=== PATIENT | male | born 2000 | race Hispanic/Latino ===

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

== ENCOUNTER 2018-05-24 10:47 | Emergency (ER) | payer BC ==
[2018-05-24 11:35] LABS: Absolute Lymphocytes (CBC) 1.6 K/uL (0.7-4.9); Absolute Monocytes 0.7 K/uL (0.1-1.3); Absolute Neutrophil 4.6 K/uL (1.8-8.0); Basophils % 0.9 % (0-1.3); Eosinophils % 1.3 % (0-4.4); Hematocrit 48.9 % (39.6-49.0); Lymphocytes % 22.9 % (15.3-44.8); MPV 12.5 fL (7.6-11.3); Monocytes % 9.5 % (3.3-12.3)
[2018-05-24 11:59] LABS: BUN Blood Urea Nitrogen 7 mg/dL (7-18); Bicarbonate 30 mmol/L (21-32); Glucose Level 73 mg/dL (74-106); Potassium 3.5 mmol/L (3.5-5.1); Sodium Level 140 mmol/L (136-145); Troponin (Emerg Dept Use Only) < 0.02 ng/mL (0.0-0.045)
[2018-05-24 12:21] LABS: Platelet Estimate ADEQ; Urine White Blood Cell Casts OK
[2018-05-24 12:22] LABS: Blood Morphology Comment NOT SEEN (NOT SEEN)
--- NOTE | 2018-05-24 12:50 | RAD REPORT ---
EXAM DESCRIPTION: RAD - Chest Pa And Lat (2 Views) - 05/24/2018 12:44 pm CLINICAL HISTORY: Chest pain COMPARISON: October 2014 TECHNIQUE: PA and lateral views of the chest were obtained. FINDINGS: The lungs are clear. Lung markings are similar to comparison. Heart size is normal and ce ntral vasculature is within normal limits. No pleural effusion or pneumothorax seen. No acute bony finding noted. No aortic abnormality. IMPRESSION: No acute cardiopulmonary process. No significant interval change.
--- NOTE | 2018-05-24 13:20 | ER ---
Nurse's Notes [facility] Name: Jessica Dalton Age: 18 yrs Sex: Male : 2000 Arrival Date: 05/24/2018 Time: 10:51 Bed 18 Private MD: Willie Edgar A Diagnosis: Chest pain, unspecified Presentation: 05/24 10:57 Presenting complaint: Patient states: "I've been having chest pain since I was 14 years aa5 old but it just got worse about a month ago". pt also reports SOB. Reports generalized weakness x 1 week ago. Transition of care: patient was not received from another setting of care. Onset of symptoms was 2014. Risk Assessment: Do you want to hurt yourself or someone else? Patient reports no desire to harm self or others. Initial Sepsis Screen: Does the patient meet any 2 criteria? No. Patient's initial sepsis screen is negative. Does the patient have a suspected source of infection? No. Patient's initial sepsis screen is negative. Care prior to arrival: None. 10:57 Method Of Arrival: Ambulatory aa5 10:57 Acuity: MARINA 3 aa5 Triage Assessment: 11:02 General: Appears in no apparent distress. uncomfortable, Behavior is calm, cooperative, hj appropriate for age. Pain: Complains of pain in chest. Cardiovascular: Reports chest pain. Historical: - Allergies: 10:58 No Known Allergies; aa5 - Home Meds: 10:58 None [Active]; aa5 - PMHx: 10:58 None; aa5 - Immunization history:: Flu vaccine is not up to date. - Social history:: Smoking status: Patient uses tobacco products, smokes one-half pack cigarettes per day. - Ebola Screening: : No symptoms or risks identified at this time. Screenin:02 Abuse screen: Denies threats or abuse. Denies injuries from another. Nutritional hj screening: No deficits noted. Tuberculosis screening: No symptoms or risk factors identified. Fall Risk None identified. Assessment: 11:03 Pain: Pain does not radiate. Pain began for amonth. hj 11:10 Reassessment: provider in room;. General: Appears in no apparent distress. hj uncomfortable, Behavior is calm, cooperative, appropriate for age. Neuro: Level of Consciousness is awake, alert, obeys commands, Oriented to person, place, time, situation, Appropriate for age. Cardiovascular: Reports chest pain. Respiratory: No deficits noted. GI: No signs and/or symptoms were reported involving the gastrointestinal system. : No signs and/or symptoms were reported regarding the genitourinary system. EENT: No signs and/or symptoms were reported regarding the EENT system. Derm: No signs and/or symptoms reported regarding the dermatologic system. Musculoskeletal: No signs and/or symptoms reported regarding the musculoskeletal system. 12:09 Reassessment: Patient and/or family updated on plan of care and expected duration. Pain hj level reassessed. Patient is alert, oriented x 3, equal unlabored respirations, skin warm/dry/pink. BP came down to 176/62;. Vital Signs: 10:58 BP 126 / 78; Pulse 88; Resp 16 S; Temp 98.9(O); Pulse Ox 99% on R/A; Weight 99.79 kg aa5 (R); Height 6 ft. 0 in. (182.88 cm) (R); Pain 5/10; 12:09 BP 125 / 75; Pulse 84; Resp 18; Pulse Ox 100% on R/A; hj 10:58 Body Mass Index 29.84 (99.79 kg, 182.88 cm) aa5 ED Course: 10:51 Patient arrived in ED. mr 10:51 Willie Edgar MD is Private Physician. mr 10:56 Arm band placed on. aa5 10:58 Triage completed. aa5 11:00 Fidel Grullon MD is Attending Physician. gs 11:02 Bryce Cabrera, JABARI is Primary Nurse. hj 11:03 Patient has correct armband on for positive identification. Placed in gown. Bed in low hj position. Call light in reach. Side rails up X 1. Adult w/ patient. pharmacy clinical specialist on. Pulse ox on. NIBP on. 11:03 Patient maintains SpO2 saturation greater than 95% on room air. hj 11:19 EKG done, by cleaning technician. reviewed by Fidel Grullon MD. at1 11:22 Initial lab(s) drawn, by ED staff, sent to lab. Inserted saline lock: 20 gauge in right hj forearm, using aseptic technique. Blood collected. 12:46 XRAY Chest Pa And Lat (2 Views) In Process Unspecified. EDMS Administered Medications: 13:17 Drug: TORadol 30 mg Route: IVP; Site: right forearm; 13:27 Follow up: Response: No adverse reaction; Pain is decreased Outcome: 13:19 Discharge ordered by . hernán 13:37 Patient left the ED. Signatures: Dispatcher [employer] CHIQUI HamAlexia mr RoldanRadha, RN RN aa5 Patrizia Alexander, software quality tester EKG Tat1 Bryce Cabrera RN RN hj Starr, Gregory, MD MD
--- NOTE | 2018-05-24 13:20 | EDPHYS ---
Physician Documentation [facility] Name: Jessica Dalton Age: 18 yrs Sex: Male : 2000 Arrival Date: 05/24/2018 Time: 10:51 Bed 18 Private MD: Willie Edgar, A ED Physician YadiMarlonFidel HPI: 05/24 13:11 This 18 yrs old Male presents to ER via Ambulatory with complaints of Chest gs Pain, Weakness. 13:11 The patient or guardian reports chest pain that is located primarily in the anterior gs chest wall. The pain does not radiate. Associated signs and symptoms: Pertinent negatives: abdominal pain, diaphoresis, lightheadedness, vomiting. The chest pain is described as dull. Duration: The patient or guardian reports multiple episodes, that are intermittent, that wax and wane, with no pattern, the episodes last approximately 5 minute(s). Modifying factors: the symptoms are aggravated by twisting torso. Severity of pain: At its worst the pain was moderate in the emergency department the pain has improved mildly. The patient has experienced similar episodes in the past, a few times. Historical: - Allergies: 10:58 No Known Allergies; aa5 - Home Meds: 10:58 None [Active]; aa5 - PMHx: 10:58 None; aa5 - Immunization history:: Flu vaccine is not up to date. - Social history:: Smoking status: Patient uses tobacco products, smokes one-half pack cigarettes per day. - Ebola Screening: : No symptoms or risks identified at this time. ROS: 13:11 All other systems are negative. gs Exam: 13:11 Head/Face: Normocephalic, atraumatic. Eyes: Pupils equal round and reactive to light, gs extra-ocular motions intact. Lids and lashes normal. Conjunctiva and sclera are non-icteric and not injected. Cornea within normal limits. Periorbital areas with no swelling, redness, or edema. ENT: Nares patent. No nasal discharge, no septal abnormalities noted. Tympanic membranes are normal and external auditory canals are clear. Oropharynx with no redness, swelling, or masses, exudates, or evidence of obstruction, uvula midline. Mucous membranes moist. Neck: Trachea midline, no thyromegaly or masses palpated, and no cervical lymphadenopathy. Supple, full range of motion without nuchal rigidity, or vertebral point tenderness. No Meningismus. Chest/axilla: Normal chest wall appearance and motion. Nontender with no deformity. No lesions are appreciated. Cardiovascular: Regular rate and rhythm with a normal S1 and S2. No gallops, murmurs, or rubs. Normal PMI, no JVD. No pulse deficits. Respiratory: Lungs have equal breath sounds bilaterally, clear to auscultation and percussion. No rales, rhonchi or wheezes noted. No increased work of breathing, no retractions or nasal flaring. Abdomen/GI: Soft, non-tender, with normal bowel sounds. No distension or tympany. No guarding or rebound. No evidence of tenderness throughout. Back: No spinal tenderness. No costovertebral tenderness. Full range of motion. Skin: Warm, dry with normal turgor. Normal color with no rashes, no lesions, and no evidence of cellulitis. MS/ Extremity: Pulses equal, no cyanosis. Neurovascular intact. Full, normal range of motion. Neuro: Awake and alert, GCS 15, oriented to person, place, time, and situation. Cranial nerves II-XII grossly intact. Motor strength 5/5 in all extremities. Sensory grossly intact. Cerebellar exam normal. Normal gait. 13:11 Constitutional: The patient appears alert, awake. 13:11 ECG was reviewed by the Attending Physician. Vital Signs: 10:58 BP 126 / 78; Pulse 88; Resp 16 S; Temp 98.9(O); Pulse Ox 99% on R/A; Weight 99.79 kg aa5 (R); Height 6 ft. 0 in. (182.88 cm) (R); Pain 5/10; 12:09 BP 125 / 75; Pulse 84; Resp 18; Pulse Ox 100% on R/A; hj 10:58 Body Mass Index 29.84 (99.79 kg, 182.88 cm) aa5 MDM: 11:13 Patient medically screened. 13:11 Differential diagnosis: coronary artery disease chest wall pain, pleurisy, gs pneumothorax. Data reviewed: vital signs, nurses notes. Response to treatment: the patient's symptoms have resolved after treatment, and as a result, I will discharge patient. 05/24 11:15 Order name: Basic Metabolic Panel; Complete Time: 12:35 05/24 11:15 Order name: CBC with Diff; Complete Time: 12:35 05/24 11:15 Order name: Troponin (emerg Dept Use Only); Complete Time: 12:35 05/24 11:15 Order name: XRAY Chest Pa And Lat (2 Views); Complete Time: 13:10 05/24 12:04 Order name: CBC Smear Scan; Complete Time: 12:35 [facility] 05/24 11:06 Order name: EKG; Complete Time: 11:07 05/24 11:15 Order name: Cardiac monitoring; Complete Time: 11:17 05/24 11:15 Order name: IV Saline Lock; Complete Time: 11: 05/24 11:15 Order name: Labs collected and sent; Complete Time: : 05/24 11:15 Order name: O2 Per Protocol; Complete Time: 11: 05/24 11:15 Order name: O2 Sat Monitoring; Complete Time: 11:17 EC:11 Rate is 73 beats/min. Rhythm is regular. [place] interval is normal. QRS interval is normal. gs T waves are Normal. No ST changes noted. Clinical impression: Normal ECG. Interpreted by me. Administered Medications: 13:17 Drug: TORadol 30 mg Route: IVP; Site: right forearm; 13:27 Follow up: Response: No adverse reaction; Pain is decreased Disposition: 05/24/18 13:19 Discharged to Home. Impression: Chest pain, unspecified. - Condition is Stable. - Discharge Instructions: Nonspecific Chest Pain. - Prescriptions for Naprosyn 500 mg Oral Tablet - take 1 tablet by ORAL route 2 times per day for 7 days take with food; 14 tablet. Pepcid 20 mg Oral Tablet - take 1 tablet by ORAL route every 12 hours for 10 days; 20 tablet. - Medication Reconciliation Form, Thank You Letter, Antibiotic Education, Prescription Opioid Use form. - Follow up: Private Physician; When: 2 - 3 days; Reason: Re-evaluation by your physician. Signatures: Dispatcher [employer] Radha Garcia, RN RN aa5 Bryce Cabrera RN RN Fidel Polanco MD MD gs Corrections: (The following items were deleted from the chart) 13:37 13:19 05/24/2018 13:19 Discharged to Home. Impression: Chest pain, unspecified. hj Condition is Stable. Forms are Medication Reconciliation Form, Thank You Letter, Antibiotic Education, Prescription Opioid Use. Follow up: Private Physician; When: 2 - 3 days; Reason: Re-evaluation by your physician. gs
[2018-05-24] MEDS ORDERED: KETOROLAC 30 MG/ML INJ ONE (13:35)
[2018-05-24 14:13] VITALS: TEMP 98.9
[2018-05-24 14:14] VITALS: BP 125/75; O2SAT 100
--- NOTE | 2018-05-24 17:27 | EKG ---
Test Date: 2018-05-24 Test Time: 11:07:22 Engraver Picture: ANTHONY MEASUREMENT RESULTS: Intervals: Rate: 73 IA: 134 QRSD: 88 QT: 366 QTc: 403 Elliott: P: 55 IA: 134 QRS: 57 T: 26 INTERPRETIVE STATEMENTS: Normal sinus rhythm Normal ECG Compared to ECG 10/24/2011 14:00:46 No significant changes Electronically Signed On 05-24-18 17:26:39 SERVICER by Doroteo Diehl
== END 2018-05-24 13:37 | disposition home or self-care (01) ==
LOC: ER 10:47
DX: R07.9 Chest pain, unspecified (principal); F17.210 Nicotine dependence, cigarettes, uncomplicated
CPT/HCPCS: 36415; 71046; 80048; 84484; 85025; 93005; 96374; 99285

== ENCOUNTER 2019-08-09 18:05 | Emergency (ER) | payer BC ==
--- OUTSIDE RECORDS SUMMARY | 2019-08-09 18:07 | XMS REPORT ---
:2000 Author Organization [facility] t Address [address] [place] [address] Dr. Bull [address] [place] [id number] Care Team Providers Name Role Phone Unavailable Unavailable Unavailable Problems This patient has no known problems. Allergies, Adverse Reactions, Alerts This patient has no known allergies or adverse reactions. Medications This patient has no known medications.
[2019-08-09] MEDS ORDERED: KETOROLAC 30 MG/ML INJ ONE (19:55)
--- NOTE | 2019-08-09 20:32 | EDPHYS ---
Physician Documentation [facility] Name: Jessica Dalton Age: 19 yrs Sex: Male : 2000 Arrival Date: 08/09/2019 Time: 18:08 Bed 2 Private MD: Shalom Cox HPI: 08/08 19:42 This 19 yrs old Male presents to ER via Ambulatory with complaints of Knee pm1 Pain. 19:42 The patient presents with pain. The complaints affect the posterior aspect of left pm1 knee. Context: resulted from Lifting 80 lbs object and his left knee buckled, the patient is able to ambulate, Problem is a result from a previous injury: No. Onset: The symptoms/episode began/occurred today. Modifying factors: The symptoms are alleviated by remaining still, the symptoms are aggravated by movement, weight bearing. Associated signs and symptoms: The patient has no apparent associated signs or symptoms. Treatment prior to arrival includes: no previous treatment. The patient has not experienced similar symptoms in the past. The patient has not recently seen a physician. Historical: - Allergies: 18:27 No Known Allergies; iw - Home Meds: 18:27 None [Active]; iw - PMHx: 18:27 None; iw - PSHx: 18:27 None; iw - Immunization history:: Adult Immunizations up to date. - Social history:: Smoking status: Patient reports the use of cigarette tobacco products, smokes one-half pack cigarettes per day. ROS: 19:44 Constitutional: Negative for fever, chills, and weight loss, Neck: Negative for injury, pm1 pain, and swelling, Cardiovascular: Negative for chest pain, palpitations, and edema, Respiratory: Negative for shortness of breath, cough, wheezing, and pleuritic chest pain, Abdomen/GI: Negative for abdominal pain, nausea, vomiting, diarrhea, and constipation, Back: Negative for injury and pain. 19:44 Skin: Negative for injury, rash, and discoloration, Neuro: Negative for headache, weakness, numbness, tingling, and seizure. 19:44 MS/extremity: Positive for pain, of the posterior aspect of left knee, Negative for decreased range of motion, deformity. Exam: 19:44 Constitutional: This is a well developed, well nourished patient who is awake, alert, pm1 and in no acute distress. Head/Face: Normocephalic, atraumatic. 19:44 Back: No spinal tenderness. No costovertebral tenderness. Full range of motion. Skin: Warm, dry with normal turgor. Normal color with no rashes, no lesions, and no evidence of cellulitis. 19:44 Cardiovascular: Exam negative for acute changes, Rate: normal, Pulses: no pulse deficits are appreciated. 19:44 Respiratory: Exam negative for acute changes, respiratory distress, shortness of breath. 19:44 Musculoskeletal/extremity: Extremities: grossly normal except: noted in the posterior aspect of left knee: tenderness, There is no evidence of decreased ROM, deformity, ROM: no acute changes, Circulation is intact in all extremities. Vital Signs: 18:25 BP 139 / 63; Pulse 78; Resp 16; Temp 97.6; Pulse Ox 99% on R/A; Weight 97.52 kg; Height iw 6 ft. 0 in. (182.88 cm); Pain 5/10; 20:46 BP 133 / 89; Pulse 78; Resp 18; Temp 98; Pulse Ox 100% on R/A; mg2 18:25 Body Mass Index 29.16 (97.52 kg, 182.88 cm) iw MDM: 19:32 Patient medically screened. pm1 19:45 Data reviewed: vital signs. Data interpreted: Pulse oximetry: on room air is 99 %. pm1 Interpretation: normal. 20:30 Counseling: I had a detailed discussion with the patient and/or guardian regarding: the pm1 historical points, exam findings, and any diagnostic results supporting the discharge/admit diagnosis, radiology results, the need for outpatient follow up, for definitive care, a orthopedic surgeon, to return to the emergency department if symptoms worsen or persist or if there are any questions or concerns that arise at home. 08/08 19:42 Order name: Knee Left 3 View XRAY; Complete Time: 22:05 pm1 08/08 19:42 Order name: Knee Immobilizer; Complete Time: 20:14 pm1 08/08 19:42 Order name: Crutches; Complete Time: 20:14 pm1 Administered Medications: 19:52 Drug: TORadol 60 mg Route: IM; Site: left gluteus; mg2 20:46 Follow up: Response: No adverse reaction; Marked relief of symptoms mg2 Disposition: 08/09 09:03 Co-signature as Attending Physician, Shalom Jain MD I agree with the assessment and monica plan of care. Disposition: 08/09/19 20:31 Discharged to Home. Impression: Pain in left knee. - Condition is Stable. - Discharge Instructions: Crutch Use, Knee Immobilizer, Knee Pain. - Prescriptions for Tramadol 50 mg Oral Tablet - take 1 tablet by ORAL route every 8 hours as needed; 12 tablet. - Work release form, Medication Reconciliation Form, Thank You Letter, Antibiotic Education, Prescription Opioid Use form. - Follow up: Emergency Department; When: As needed; Reason: Worsening of condition. Follow up: Private Physician; When: 2 - 3 days; Reason: Recheck today's complaints, Continuance of care, Re-evaluation by your physician. - Problem is new. - Symptoms have improved. Signatures: Dispatcher [employer] Shalom Blanton MD MD cha Williams, Irene, RN RN iw Surinder Villegas, [employer] pm1 Ricardo Frey RN RN mg2 Corrections: (The following items were deleted from the chart) 08/08 20:47 20:31 08/09/2019 20:31 Discharged to Home. Impression: Pain in left knee. Condition is mg2 Stable. Forms are Medication Reconciliation Form, Thank You Letter, Antibiotic Education, Prescription Opioid Use. Follow up: Emergency Department; When: As needed; Reason: Worsening of condition. Follow up: Private Physician; When: 2 - 3 days; Reason: Recheck today's complaints, Continuance of care, Re-evaluation by your physician. Problem is new. Symptoms have improved. pm1
--- NOTE | 2019-08-09 20:32 | ER ---
Nurse's Notes [facility] Name: Jessica Dalton Age: 19 yrs Sex: Male : 2000 Arrival Date: 08/09/2019 Time: 18:08 Bed 2 Private MD: Diagnosis: Pain in left knee Presentation: 08/08 18:25 Chief complaint: Patient states: picked up a bag of concrete on Thursday and now has pain iw to left knee and behind knee. Coronavirus screen: Proceed with normal triage. Patient denies a cough. Patient denies shortness of breath or difficulty breathing. Patient denies measured and/or subjective temperature greater than 100.4F prior to today's visit. Patient denies travel on a cruise ship or to a country the [facility] currently lists as an affected area. Patient denies contact with known and/or suspected case of COVID-19. Ebola Screen: Patient negative for fever greater than or equal to 101.5 degrees Fahrenheit, and additional compatible Ebola Virus Disease symptoms Patient denies exposure to infectious person. Patient denies travel to an Ebola-affected area in the 21 days before illness onset. No symptoms or risks identified at this time. Initial Sepsis Screen: Does the patient meet any 2 criteria? No. Patient's initial sepsis screen is negative. Does the patient have a suspected source of infection? No. Patient's initial sepsis screen is negative. Risk Assessment: Do you want to hurt yourself or someone else? Patient reports no desire to harm self or others. 18:25 Method Of Arrival: Ambulatory iw 18:25 Acuity: MARINA 4 iw 19:55 Onset of symptoms was August 08, 2019. mg2 Historical: - Allergies: 18:27 No Known Allergies; iw - Home Meds: 18:27 None [Active]; iw - PMHx: 18:27 None; iw - PSHx: 18:27 None; iw - Immunization history:: Adult Immunizations up to date. - Social history:: Smoking status: Patient reports the use of cigarette tobacco products, smokes one-half pack cigarettes per day. Screenin:54 Abuse screen: Denies threats or abuse. Denies injuries from another. Nutritional mg2 screening: No deficits noted. Tuberculosis screening: No symptoms or risk factors identified. Fall Risk None identified. Assessment: 19:54 General: Appears in no apparent distress. comfortable, Behavior is calm, cooperative. mg2 Pain: Complains of pain in posterior aspect of left knee. Neuro: Level of Consciousness is awake, alert, obeys commands, Oriented to person, place, time, situation. Cardiovascular: Capillary refill < 3 seconds Patient's skin is warm and dry. Respiratory: Airway is patent Respiratory effort is even, unlabored, Respiratory pattern is regular, symmetrical. GI: No signs and/or symptoms were reported involving the gastrointestinal system. : No signs and/or symptoms were reported regarding the genitourinary system. EENT: No signs and/or symptoms were reported regarding the EENT system. Derm: Skin is intact, is healthy with good turgor, Skin is pink, warm \T\ dry. normal. Musculoskeletal: Circulation, motion, and sensation intact. Capillary refill < 3 seconds. 19:54 Musculoskeletal: Reports pain in left leg. mg2 Vital Signs: 18:25 BP 139 / 63; Pulse 78; Resp 16; Temp 97.6; Pulse Ox 99% on R/A; Weight 97.52 kg; Height iw 6 ft. 0 in. (182.88 cm); Pain 5/10; 20:46 BP 133 / 89; Pulse 78; Resp 18; Temp 98; Pulse Ox 100% on R/A; mg2 18:25 Body Mass Index 29.16 (97.52 kg, 182.88 cm) iw ED Course: 18:08 Patient arrived in ED. mr 18:26 Triage completed. iw 18:27 Arm band placed on. iw 19:24 Naveed Patel, JABARI is Primary Nurse. rr5 19:27 Surinder Villegas NP is PHCP. pm1 19:27 Shalom Jain MD is Attending Physician. pm1 19:47 Ricardo Frey RN is Primary Nurse. mg2 19:55 Patient has correct armband on for positive identification. mg2 19:55 No provider procedures requiring assistance completed. Patient did not have IV access mg2 during this emergency room visit. 20:14 Crutch training done. Knee immobilizer applied on left knee. lt1 20:15 Knee Left 3 View XRAY In Process Unspecified. EDMS Administered Medications: 19:52 Drug: TORadol 60 mg Route: IM; Site: left gluteus; mg2 20:46 Follow up: Response: No adverse reaction; Marked relief of symptoms mg2 Outcome: 20:31 Discharge ordered by MD. pm1 20:46 Discharged to home ambulatory, with crutches. mg2 20:46 Condition: good 20:46 Discharge instructions given to patient, Instructed on discharge instructions, follow up and referral plans. medication usage, crutch walking, Demonstrated understanding of instructions, follow-up care, medications, crutch walking, Prescriptions given X 1. 20:47 Patient left the ED. mg2 Signatures: Dispatcher [employer] EDFL Alexia Cheek Irene, RN RN iw Surinder Villegas, [employer] DESIGNER pm1 Ricardo Frey RN RN mg2 Naveed Patel RN RN rr5 Ed[facility], [facility]
--- NOTE | 2019-08-09 20:33 | RAD REPORT ---
EXAM DESCRIPTION: RAD - Knee Left 3 View - 08/09/2019 8:15 pm CLINICAL HISTORY: Left knee pain FINDINGS: No fracture or dislocation is seen. No bone or joint abnormality noted
[2019-08-09 21:56] VITALS: BP 133/89; TEMP 98; O2SAT 100
== END 2019-08-09 20:47 | disposition home or self-care (01) ==
LOC: ER 18:05
DX: M25.562 Pain in left knee (principal); F17.210 Nicotine dependence, cigarettes, uncomplicated
CPT/HCPCS: 96372; 99284